=== PATIENT | female | born 1990 | race Caucasian/White ===

== ENCOUNTER 2018-08-15 14:55 | Day surgery (SDC) | payer OTHER ==
[2018-08-15 16:02] VITALS: BMI 40.8
[2018-08-15 16:44] LABS: Creatinine, Urine 52.76 mg/dL (47-110); Protein, Urine Random Quant Less than 10 mg/dL (1-14)
[2018-08-15 17:07] LABS: #Basophils 0.1 thou/uL (0.0-0.2); #Eosinphils 0.1 thou/uL (0.0-0.7); #Lymphocytes 2.4 thou/uL (1.20-3.40); #Monocytes 0.6 thou/uL (0.11-0.59); #Neutrophils 11.8 thou/uL (1.40-6.50); %Basophils 0.3 % (0.0-1.0); %Eosinophils 0.6 % (0.0-10.0); %Monocytes 3.9 % (0.0-10.0); %Neutrophils 79.3 % (42.0-75.0); Hemoglobin 11.8 g/dL (12.0-16.0); Mean Corpuscular HGB CONC 32.6 g/dL (32.0-36.0); Mean Corpuscular Hemoglobin 29.3 pg (27.0-31.0); Mean Corpuscular Volume 89.8 fL (78.0-98.0); Mean Platelet Volume 8.9 fL (7.4-10.4); Platelet Count 199 thou/uL (130-400); RBC Distribution Width 12.6 % (11.5-14.5); Red Blood Cell (RBC) Count 4.03 mill/uL (4.20-5.40); White Blood Cell (WBC) Count 14.8 thou/uL (4.8-10.8)
[2018-08-15 17:36] LABS: ALT (SGPT) 10 U/L (8-55); AST (SGOT) 14 U/L (5-34); Albumin 3.4 g/dL (3.5-5.0); Alkaline Phosphatase 83 U/L (40-150); Anion Gap 15 mmol/L (10-20); BUN (Urea Nitrogen) 7 mg/dL (7.0-18.7); Bilirubin, Total 0.3 mg/dL (0.2-1.2); Calc. Creatinine Clearance 255 mL/min (70-130); Calcium 8.9 mg/dL (7.8-10.44); Carbon Dioxide 19 mmol/L (22-29); Chloride 107 mmol/L (98-107); Estimated GFR-MDRD Greater than 90; Globulin 2.9 g/dL (2.4-3.5); Glucose 90 mg/dL (70-105); Potassium 3.8 mmol/L (3.5-5.1); Protein, Total 6.3 g/dL (6.0-8.3); Sodium 137 mmol/L (136-145)
--- NOTE | 2018-08-15 18:21 | PDOC.LDHP ---
Labor and Delivery H&P HPI: 28 y/o at 29w3d, patient of Dr. Arshad, presents with shortness of breath for the last few weeks. Exacerbated by movement and exercise, improves with rest. Has discussed this with Dr. Arshad who referred her to cardiology ( appointment tomorrow). Also complaining of some blurry vision when focusing on reading. Denies VB, LOF, ctx, RUQ pain, CARRANZA or other concerns. +FM. ROS neg for HEENT, CV, pulm, GI, , neuro, psych, skin, musculoskeletal, or constitutional symptoms other than mentioned above. OB History Details: First with preeclampsia, 4th degree laceration Current complications: none Past Medical History: Blind in one eye Scoliosis Current medications: pre- vitamins Previous surgical history: other (eye surgery) Allergies/Adverse Reactions: Allergies Allergy/AdvReac Type Severity Reaction Status Date / Time adhesive tape Allergy Verified 08/15/18 15:40 Sulfa (Sulfonamide Allergy Verified 08/15/18 15:40 Antibiotics) Social history: none - Physical Exam Vital signs reviewed and normal: yes Abnormal vital signs: normal to mild range BPs General: NAD, resting Heart: RRR Lungs: CTAB Abdomen: gravid Extremeties: no edema FHT: category 1 (140s, mod variability, + accels, no decels) [place] contractions every: none - Assessment 28 y/o at 29w3d with no e/o preeclampsia and normal lung exam. Able to talk at a normal pace without dyspnea, O2 saturation 100%. status reassuring with reactive NST. - Plan -: D/c home with precautions. Advised to keep cardiology appointment tomorrow and all appointments.
== END 2018-08-15 18:19 | disposition home or self-care (01) ==
LOC: L&D/OP 14:55
PROVIDERS: ATTEND Obstetrics & Gynecology
DX: O99.89 Other specified diseases and conditions complicating pregnancy, childbirth and the puerperium (principal); R06.02 Shortness of breath; H53.8 Other visual disturbances; Z3A.29 29 weeks gestation of pregnancy; Z88.2 Allergy status to sulfonamides; Z91.048 Other nonmedicinal substance allergy status; Z79.899 Other long term (current) drug therapy
CPT/HCPCS: 36415; 80053; 82570; 84156; 85025; 99284

== ENCOUNTER 2018-10-16 09:28 | Day surgery (SDC) | payer OTHER ==
--- NOTE | 2018-10-17 05:23 | SS ---
DATE OF ADMISSION: 10/16/2018 DATE OF DISCHARGE: 10/16/2018 REGULAR PHYSICIAN: Kamari Arshad DO EVALUATING PHYSICIAN: Artemio Dangelo MD CHIEF COMPLAINT: Here for blood pressure check. HISTORY OF PRESENT ILLNESS: Ms. London is a 28-year-old white G2, P1, with an estimated date of confinement of 10/28/2018, who presents here for blood pressure check from Dr. Arshad. Apparently, she was seen in clinic and had an elevated blood pressure there. She denies visual changes, right upper quadrant pain, nausea, vomiting, or headache. Her care has been with Dr. Arshad, and she is dispositioned for a next week due to a history of fourth-degree laceration with her last . PAST OBSTETRICAL HISTORY: Includes vaginal delivery with fourth degree laceration as above. PAST MEDICAL HISTORY: None. PAST SURGICAL HISTORY: Includes wisdom teeth extraction, kidney stone removal, and strabismus surgery. CURRENT MEDICATIONS: vitamins. ALLERGIES: TO SULFA, WHICH GIVES HER RASH. SOCIAL HISTORY: Denies tobacco, alcohol, or drug use. FAMILY HISTORY: Unremarkable. REVIEW OF SYSTEMS: She denies nausea, vomiting, fever, chills, ruptured membranes, vaginal bleeding, or decreased movement. PHYSICAL EXAMINATION: VITAL SIGNS: Serial blood pressures here are 138/85, 134/80, 129/79, and 124/78. GENERAL: She is pleasant and in no acute distress. ABDOMEN: Soft, nontender, and gravid. PELVIS: Deferred. heart rate tracing is stable with spontaneous accelerations. No decelerations are seen. No significant regular contractions are noted. ASSESSMENT: 1. 38-week intrauterine . 2. No evidence of elevated blood pressures in triage today. 3. History of fourth-degree perineal laceration, dispositioned for section next week. PLAN: Dr. Arshad is aware of these blood pressures and she said that the patient can go home without any laboratory work. Precautions were given to the patient. She has a followup appointment with Dr. Arshad scheduled. Job ID: [id number]
== END 2018-10-16 11:14 | disposition home or self-care (01) ==
LOC: L&D/OP 09:28
PROVIDERS: ATTEND Obstetrics & Gynecology
DX: O99.89 Other specified diseases and conditions complicating pregnancy, childbirth and the puerperium (principal); R03.0 Elevated blood-pressure reading, without diagnosis of hypertension; Z3A.38 38 weeks gestation of pregnancy; Z88.2 Allergy status to sulfonamides
CPT/HCPCS: 99282

== ENCOUNTER 2018-10-23 05:37 | Inpatient (IN) | payer OTHER ==
[2018-10-23] MEDS ORDERED: Promethazine HCl 25 MG/ML VIAL IM PRN ×3 (05:59→12:58)
[2018-10-23] MEDS ORDERED: Bicitra 30 ML UDCUP PO SCH (05:59)
[2018-10-23] MEDS ORDERED: Lactated Ringer's 1,000 ML IV SCH (05:59)
[2018-10-23] MEDS ORDERED: Ondansetron PF 4 MG/2 ML Vial IVP PRN ×3 (05:59→11:54)
[2018-10-23] MEDS ORDERED: CEFAZOLIN 2 GM in Premix Bag 1 BAG IVPB SCH (05:59)
[2018-10-23 06:37] VITALS: BMI 38.5
[2018-10-23 07:08] LABS: Hemoglobin 12.6 g/dL (12.0-16.0); Mean Corpuscular HGB CONC 33.7 g/dL (32.0-36.0); Mean Corpuscular Hemoglobin 28.5 pg (27.0-31.0); Mean Corpuscular Volume 84.4 fL (78.0-98.0); Mean Platelet Volume 9.5 fL (7.4-10.4); Platelet Count 213 thou/uL (130-400); RBC Distribution Width 12.6 % (11.5-14.5); Red Blood Cell (RBC) Count 4.41 mill/uL (4.20-5.40); White Blood Cell (WBC) Count 13.8 thou/uL (4.8-10.8)
[2018-10-23] MEDS ORDERED: MORPHINE 5 MG/10 ML PF VIAL ONE (07:20)
[2018-10-23] MEDS ORDERED: Fentanyl 100 MCG/2 ML VIAL ONE (07:20)
[2018-10-23] MEDS ORDERED: Phenylephrine HCL 10 MG/ML VIAL ONE (07:21)
[2018-10-23] MEDS ORDERED: Oxytocin 10 UNITS/ML VIAL ONE ×2 (07:21→07:24)
[2018-10-23 07:33] LABS: Syphilis Antibody Nonreactive (Nonreactive); Syphilis Antibody Index 0.03 S/CO (<1.00 Non-Reactive)
[2018-10-23 07:34] LABS: HBSAg Index 0.26 S/CO (0-0.99); Hep B Surf Ag Non-Reactive S/CO (NonReactive)
[2018-10-23] MEDS ORDERED: Bupivacaine 0.25% HCL 30 ML VIAL ONE (08:02)
[2018-10-23] MEDS ORDERED: Naloxone HCl 0.4 mg/ml Vial IVP PRN ×2 (08:24)
[2018-10-23] MEDS ORDERED: Promethazine HCl 25 MG SUPP PR PRN ×2 (08:24→12:58)
[2018-10-23] MEDS ORDERED: diphenhydrAMINE 50 MG/ML VIAL IVP PRN ×2 (08:24→12:58)
[2018-10-23] MEDS ORDERED: Ondansetron HCl/PF 4 MG/2 ML Vial IVP PRN (08:24)
[2018-10-23] MEDS ORDERED: Meperidine HCl/PF 25 MG/ML VIAL SLOW IVP PRN (08:24)
[2018-10-23] MEDS ORDERED: Naloxone HCl 0.4 mg/ml Vial IV PRN ×4 (08:24→12:58)
[2018-10-23] MEDS ORDERED: Ketorolac Tromethamine 30 MG/ML VIAL IVP PRN (08:24)
[2018-10-23] MEDS ORDERED: HYDROmorphone 2 MG/ML VIAL SLOW IVP PRN (08:24)
[2018-10-23] MEDS ORDERED: L&D-Morphine 4 MG/ML VIAL SLOW IVP PRN (08:24)
[2018-10-23] MEDS ORDERED: Ketorolac Tromethamine 30 MG/ML VIAL IVP SCH (08:30)
[2018-10-23] MEDS ORDERED: Communication Order-Pharmacy FS SCH (08:30)
[2018-10-23] MEDS ORDERED: Ropivacaine 0.2% 550 ML 750 ML NERVE BLCK SCH (08:45)
[2018-10-23] MEDS ORDERED: Ketorolac Tromethamine 30 MG/ML VIAL ONE (09:32)
[2018-10-23] MEDS ORDERED: Ropivacaine HCl/PF 750 ML in Premix Bag 1 BAG NERVE BLCK SCH (10:00)
--- NOTE | 2018-10-23 10:58 | OP ---
DATE OF PROCEDURE: 10/23/2018 PREOPERATIVE DIAGNOSES: 1. A 28-year-old, G2, P1-0-0-1 at 39 weeks with history of fourth-degree perineal laceration with last delivery. 2. Desires primary section. POSTOPERATIVE DIAGNOSES: 1. A 28-year-old, G2, P1-0-0-1 at 39 weeks with history of fourth-degree perineal laceration with last delivery. 2. Desires primary section. PROCEDURE PERFORMED: Primary low-transverse section with On-Q pump placement. VISITOR USE ASSISTANT: Mandeep Massey MD ANESTHESIA: Spinal per Dr. Guzman. COMPLICATIONS: None. ESTIMATED BLOOD LOSS: 700 mL. QUANTITATIVE BLOOD LOSS: Pending. OPERATIVE FINDINGS: 1. Vigorous female , weight 6 pounds 9 ounces. Apgars pending at the time of dictation to Nursery. 2. Low-transverse hysterotomy without extension. 3. Normal-appearing uterus, tubes, and ovaries bilaterally. 4. Surgical site hemostatic. DESCRIPTION OF PROCEDURE: The patient was taken back to the OR with IV fluids running. When she was in the OR, spinal anesthesia was obtained. The patient was placed in dorsal supine position with left lateral tilt. Herrera catheter was placed using sterile technique. 2 g of Ancef was administered preoperative. The patient was prepped and draped in normal fashion for section. The surgeons were gloved and gowned, and anesthesia was tested and found to be adequate. A Pfannenstiel skin incision was made with a scalpel. Skin incision was carried down through the subcutaneous tissue to the fascia. Once the fascia was reached, it was incised in the midline and extended superolaterally using curved Riley scissors. Jesse clamps were placed at the superior border of the fascia, which was sharply and bluntly dissected off the rectus abdominis muscles in a cephalad direction in similar fashion. Jesse clamps were placed at the inferior border of the fascia, which was dissected down towards the pubic symphysis. The rectus muscles and peritoneum were bluntly entered and stretched laterally. An Uday O retractor was placed into the peritoneal cavity for retraction, visualization, and protection of the wound. A bladder flap was created using the scalpel. The bladder flap was dissected away from the planned hysterotomy site. A low-transverse hysterotomy was made with a scalpel. The hysterotomy was bluntly entered and stretched superolaterally using Miller maneuver, and amniotomy was performed, and clear fluid was noted. The infant was delivered vertex through the incision without difficulty. The nose and mouth were suctioned. The cord was doubly clamped and cut. The infant was handed off to special care nurses in attendance. Cord blood was collected. The uterus was exteriorized. The placenta was delivered. Uterus was massaged to firm and cleared of clot and debris with a clean dry sponge. The uterus was returned to the abdominal cavity. Hysterotomy was then closed in a running locked fashion with Monocryl suture. After the hysterotomy was closed, it was noted to be hemostatic. The paracolic gutters and hysterotomy were irrigated and suction dried. No areas of bleeding were noted. The Uday O retractor was removed from the peritoneal cavity. The peritoneum and muscle were inspected with no areas of bleeding noted. The peritoneum was reapproximated with plain gut suture. Two On-Q catheter tips were directed through the subcutaneous tissue superior to the incision down into the fascia and directed to the corners of the incision. After the two On-Q catheters were placed, the fascia was reapproximated with PDS suture from corner to corner and tied separately in the midline. The subcutaneous tissue was then irrigated and dried. Any small areas of bleeding were controlled with Bovie cauterization. The subcutaneous tissue was reapproximated with a series of interrupted plain gut sutures. The skin was closed with 4-0 Monocryl and dressed with Dermabond dressing. The On-Q pumps were primed with 0.25% Marcaine. The patient was cleaned, dried, and taken to the recovery room in good condition. Job ID: [id number]
[2018-10-23] MEDS ORDERED: Adacel (T-DAP) 0.5 ML SYRINGE IM ONE (11:54)
[2018-10-23] MEDS ORDERED: Lanolin Ointment 7 GM TUBE TOP PRN (11:54)
[2018-10-23] MEDS ORDERED: NS / Oxytocin 40 units/1000ml 1,000 ML IV SCH (11:54)
[2018-10-23] MEDS ORDERED: diphenhydrAMINE 25 MG CAP PO PRN (12:00)
[2018-10-23] MEDS ORDERED: Bisacodyl 10 MG SUPP PR PRN (12:00)
[2018-10-23] MEDS ORDERED: HYDROcodone/Acetaminophen 5/325 mg Tablet PO PRN ×2 (12:00→21:00)
[2018-10-23] MEDS ORDERED: Hydrocerin (Eucerin) Cream 120 gm Jar TOP PRN (12:58)
[2018-10-23] MEDS ORDERED: NO PO,IM,IV OR SC NARCOTICS FOR 12HR EXCEPT BY ANESTHESIA PO SCH (12:58)
[2018-10-23] MEDS: Simethicone Chewable 80 MG TAB PO PRN (13:27)
[2018-10-23] MEDS: Lactated Ringer's 1,000 ML IV SCH ×2 (13:32→20:49)
[2018-10-23] MEDS ORDERED: Metoclopramide HCl 10 MG/2 ML VIAL ONE (13:50)
[2018-10-23] MEDS ORDERED: Ondansetron PF 4 MG/2 ML Vial ONE (13:50)
[2018-10-23] MEDS: Ibuprofen 800 MG TAB PO SCH (14:50)
[2018-10-23] MEDS: Ketorolac Tromethamine 30 MG/ML VIAL IVP PRN (20:18)
[2018-10-23] MEDS: Docusate Calcium (SURFAK) 240 MG CAP PO SCH (20:51)
[2018-10-24] MEDS: Ketorolac Tromethamine 30 MG/ML VIAL IVP PRN (02:08)
[2018-10-24] MEDS: Ferrous Sulfate 325 MG TAB PO SCH ×3 (03:57→22:49)
[2018-10-24] MEDS: Ibuprofen 800 MG TAB PO SCH ×2 (03:58→07:39)
[2018-10-24 06:26] LABS: Hemoglobin 10.4 g/dL (12.0-16.0); Mean Corpuscular HGB CONC 31.8 g/dL (32.0-36.0); Mean Corpuscular Hemoglobin 27.3 pg (27.0-31.0); Mean Corpuscular Volume 85.8 fL (78.0-98.0); Mean Platelet Volume 9.5 fL (7.4-10.4); Platelet Count 186 thou/uL (130-400); RBC Distribution Width 12.6 % (11.5-14.5); Red Blood Cell (RBC) Count 3.83 mill/uL (4.20-5.40); White Blood Cell (WBC) Count 12.2 thou/uL (4.8-10.8)
[2018-10-24] MEDS: Prenatal Vitamin 1 TAB PO SCH (08:33)
[2018-10-24] MEDS: Docusate Calcium (SURFAK) 240 MG CAP PO SCH ×2 (08:33→22:49)
[2018-10-24] MEDS: Simethicone Chewable 80 MG TAB PO PRN (08:37)
[2018-10-24] MEDS: Ibuprofen 100 MG/5 ML UDCUP PO SCH ×2 (08:37→17:14)
--- NOTE | 2018-10-24 09:25 | PDOC.PP ---
Post Progress Note Post Day #: 1 Subjective: tolerating diet well, ambulating and voiding well, min pain PO intake tolerated: yes Flatus: yes Ambulation: yes Vital Signs (12 hours) Temp Pulse Resp BP Pulse Ox 10/24/18 08:17 98.1 F 70 20 118/59 L 96 10/24/18 04:00 98.2 F 68 20 125/62 10/24/18 02:00 20 10/24/18 00:15 97.6 F 78 20 125/63 10/23/18 22:00 18 Weight Weight 211 lb - Physical Examination General: NAD Respiratory: non-labored breathing Abdominal: no distention Fundus firm & at: below umb Skin: CS incision dry & intact, no rash Neurological: no gross focal deficits Psychiatric: A&Ox3, normal affect Result Diagrams: 10/24/18 05:54 Additional Labs: Post Labs Blood Type O POSITIVE 10/23/18 06:38 Hep Bs Antigen Non-Reactive S/CO (NonReactive) 10/23/18 06:38 (1) delivery delivered Code(s): O82 - ENCOUNTER FOR DELIVERY WITHOUT INDICATION Status: Acute (2) History of fourth degree perineal laceration Code(s): Z87.59 - PERSONAL HISTORY OF COMP OF PREG, CHLDBRTH AND THE PUERP Status: Acute - Assessment/Plan POD1 doing well sp 1CS for hx of 4th degree. Will change meds to elixir. Likely DC tomorrow.
[2018-10-24] MEDS: Acetaminophen/Codeine Oral Solution PO PRN ×4 (10:29→23:04)
[2018-10-25] MEDS: Ibuprofen 100 MG/5 ML UDCUP PO SCH ×3 (01:06→17:16)
[2018-10-25] MEDS: Acetaminophen/Codeine Oral Solution PO PRN ×2 (06:32→11:53)
[2018-10-25] MEDS: Docusate Calcium (SURFAK) 240 MG CAP PO SCH ×2 (09:29→21:49)
[2018-10-25] MEDS: Prenatal Vitamin 1 TAB PO SCH (09:29)
[2018-10-25] MEDS: Ferrous Sulfate 325 MG TAB PO SCH ×2 (09:29→21:49)
--- NOTE | 2018-10-25 11:26 | PDOC.PP ---
Post Progress Note Post Day #: 2 Subjective: doing well, ambulating, tolerating diet, pain controlled PO intake tolerated: yes Flatus: yes Ambulation: yes Vital Signs (12 hours) Temp Pulse Resp BP Pulse Ox 10/25/18 08:00 98 10/25/18 07:53 97.9 F 70 20 119/62 98 Weight Weight 211 lb - Physical Examination General: NAD Respiratory: non-labored breathing Abdominal: no distention Fundus firm & at: below umb Skin: CS incision dry & intact, no rash Neurological: no gross focal deficits Psychiatric: A&Ox3, normal affect Result Diagrams: 10/24/18 05:54 Additional Labs: Post Labs Blood Type O POSITIVE 10/23/18 06:38 Hep Bs Antigen Non-Reactive S/CO (NonReactive) 10/23/18 06:38 (1) History of fourth degree perineal laceration Code(s): Z87.59 - PERSONAL HISTORY OF COMP OF PREG, CHLDBRTH AND THE PUERP Status: Acute (2) deliv due to previous difficult deliv, deliv, curr hospitaliz Code(s): O82 - ENCOUNTER FOR DELIVERY WITHOUT INDICATION; Z87.59 - PERSONAL HISTORY OF COMP OF PREG, CHLDBRTH AND THE PUERP Status: Acute - Assessment/Plan POD2 doing well, pt is considering DC this afternoon vs. tomorrow AM. Pain controlled, breast feeding well.
[2018-10-25] MEDS: Acetaminophen/Codeine 120-12MG/5 ML UDCUP PO PRN ×2 (17:18→21:44)
[2018-10-25] MEDS: Simethicone Chewable 80 MG TAB PO PRN (20:07)
[2018-10-26] MEDS: Ibuprofen 100 MG/5 ML UDCUP PO SCH ×2 (02:01→08:37)
[2018-10-26] MEDS: Acetaminophen/Codeine 120-12MG/5 ML UDCUP PO PRN ×3 (02:02→10:45)
--- NOTE | 2018-10-26 07:41 | DIS ---
DATE OF ADMISSION: 10/23/2018 DATE OF DISCHARGE: 10/26/2018 ADMITTING DIAGNOSES: 1. Scheduled primary for history of 4th degree laceration. 2. Intrauterine at 39 weeks. DISCHARGE DIAGNOSIS: Status post primary . PROCEDURE: Primary lower transverse section. CONSULTATIONS: None. HOSPITAL COURSE: The patient is a 28-year-old, G2, now P2 female who presented to Labor and Delivery for scheduled primary secondary to complications with her previous delivery. For complete details of the operation, please refer to the operative note. In short, her procedure was uncomplicated and afterwards was sent to for continued postoperative care. She is now postoperative day #3. Her course has been uncomplicated. Today, she reports she is tolerating p.o., voiding on her own, having decreased lochia, and good pain control. PHYSICAL EXAMINATION: VITAL SIGNS: Today, blood pressure 132/64, temperature 97.7, pulse of 85, respiratory rate of 16, saturating 100% on room air. GENERAL: She appears to be in no acute distress. She is alert, oriented, cooperative, and pleasant to interact with. HEENT: Head is normocephalic, atraumatic. : Fundus is firm. Incision is clean, dry, and intact. EXTREMITIES: Nontender with some minimal edema, bilateral and symmetrical. LABORATORY DATA: Her post delivery hemoglobin and hematocrit 10.4 and 32.9, platelets 186,000. INSTRUCTIONS: The patient is being discharged to home with instructions to follow up with Dr. Arshad in 2 weeks for an incision check. She has been given precautions not to drive for 2 weeks, also to limit her lifting to 15 pounds for the next 4 to 6 weeks and to seek medical attention if she experiences fever, increasing pain, or bleeding, redness, drainage from the incision. Her prescriptions have been already forwarded to the pharmacy by her primary OB, Dr. Arshad. Job ID: [id number]
[2018-10-26] MEDS: Simethicone Chewable 80 MG TAB PO PRN (08:34)
[2018-10-26 09:28] VITALS: BP 128/74; TEMP 98.3
[2018-10-26] MEDS: Docusate Calcium (SURFAK) 240 MG CAP PO SCH (10:47)
[2018-10-26] MEDS: Ferrous Sulfate 325 MG TAB PO SCH (10:47)
[2018-10-26] MEDS: Prenatal Vitamin 1 TAB PO SCH (10:47)
[2018-10-26] MEDS ORDERED: Measles/Mumps/Rubella 10 MCG/0.5 ML VIAL SC ONE (11:30)
== END 2018-10-26 12:25 | disposition home or self-care (01) | DRG 788 ==
LOC: L&D 05:37 → 3SW 10:41
PROVIDERS: ADMIT Obstetrics & Gynecology; ATTEND Obstetrics & Gynecology
PROC: 10D00Z1 Extraction of Products of Conception, Low, Open Approach (ICD-10-PCS; principal; 2018-10-23)
DX: O34.63 Maternal care for abnormality of vagina, third trimester (principal); Z3A.39 39 weeks gestation of pregnancy; Z37.0 Single live birth; Z87.59 Personal history of other complications of pregnancy, childbirth and the puerperium; Z88.2 Allergy status to sulfonamides
CPT/HCPCS: 36415; 51702; 85027; 86780; 86850; 86900; 86901; 87340; 90707; A4306; J0690; J1885; J2270; J2370; J2405; J2590; J2765; J2795; J3010; S0020

== ENCOUNTER 2020-02-26 14:12 | Outpatient (CLI) | payer OTHER ==
--- NOTE | 2020-02-26 17:04 | RAD ---
LEFT HAND RADIOGRAPHS: Date: 02-26-2020 PROVIDED CLINICAL HISTORY: Pain FINDINGS: There is no evidence for fracture or other acute osseous abnormality. Alignment appears anatomic. Fadia nt spaces appear preserved. No erosive changes are evident. The soft tissues appear radiographically unremarkable. IMPRESSION: No evidence for an acute osseous abnormality significant arthropathy. POS: OFF
--- NOTE | 2020-02-26 17:05 | RAD ---
RIGHT KNEE 4 VIEWS: Date: 02/26/2020 PROVIDED CLINICAL HISTORY: Right knee pain. FINDINGS: There is no evidence for fracture or other acute osseous abnormality. Alignment appears anatomic. Fadia nt spaces appear preserved. There is no evidence for significant knee joint capsular distention. IMPRESSION: Unremarkable right knee radiographs. POS: OFF
--- NOTE | 2020-02-26 17:05 | RAD ---
RIGHT HAND RADIOGRAPHS THREE VIES: Date: 02-26-2020 PROVIDED CLINICAL HISTORY: Right hand pain. FINDINGS: No evidence for fracture or other acute osseous abnormality. Alignment appears anatomic. Joint spaces appear preserved. No erosive changes are evident. The soft tissues appear radiographically unremarka ble. IMPRESSION: No evidence for an acute osseous abnormality or significant arthropathy. POS: OFF
--- NOTE | 2020-02-26 17:31 | ULT ---
SOFT TISSUE ULTRASOUND OF THE NECK: INDICATION: History of neck mass. The patient presents with a palpable area on the posterior neck, just right of midline, at the hairline that has been palpable since June 2019. FINDINGS: Focal sonographic evaluation of the palpable region of interest demonstrates an 8.5 x 3.9 cm lymph no de. No additional abnormality is evident. IMPRESSION: Mildly prominent lymph node seen within the soft tissues of the neck in the palpable region of concer n. POS: BH
== END 2020-02-26 14:13 | disposition home or self-care (01) ==
LOC: BICULT 14:12
PROVIDERS: ATTEND Internal Medicine
DX: Z00.00 Encounter for general adult medical examination without abnormal findings (principal); R22.1 Localized swelling, mass and lump, neck; M79.641 Pain in right hand; M25.561 Pain in right knee
CPT/HCPCS: 76536

== ENCOUNTER 2021-03-01 10:23 | Outpatient (CLI) | payer OTHER | END 2021-03-01 10:24 | disposition home or self-care (01) | LOC: BICMAMMO 10:23 | PROVIDERS: ATTEND Obstetrics & Gynecology | DX: N60.01 Solitary cyst of right breast (principal) | CPT/HCPCS: 77066; G0279 ==